=== PATIENT | male | born 1935 | race Hispanic/Latino ===

== ENCOUNTER 2018-10-04 14:52 | Emergency (ER) | payer MEDICARE ==
[~2018-10-04] VITALS: Ht 160 cm; Wt 75.3 kg
[~2018-10-04 14:52] MED LIST: ASPIRIN BUFFER325 MG PO; AVODART0.5 MG PO; CALCIUM + VITA1 EACH PO; CIPRO500 MG PO; GABAPENTIN400 MG PO; GLUCOSAMINE1000 MG PO; ISOSORBIDE MONO30 MG PO; LOPRESSOR25 MG PO; NAPROXEN500 M1 PO; NITROSTAT0.4 MG SL; OMEPRAZOLE40 MG PO; PLAVIX75 MG PO; SIMVASTATIN10 MG PO; ZESTRIL2.5 MG PO; ZITHROMAX500 MG PO
--- OUTSIDE RECORDS SUMMARY | 2018-10-04 14:56 | XMS REPORT ---
Author Author Jaylon Black [facility] eClinicalWorks Address Unknown Phone Unavailable Care Team Providers Care Balancing Machine Operator Name Role Phone Jaylon Black Unavailable Allergies, Adverse Reactions, Alerts Substance Reaction Event Type N.K.D.A. Info Not Available Non Drug Allergy Problems Problem Type Condition Code Onset Dates Condition Status Assessment Bilateral leg weakness R29.898 Active Assessment Other specified peripheral vascular diseases I73.89 Active Problem Bilateral leg weakness R29.898 Active Problem Encounter for drug therapy Z79.899 Active Problem Other specified peripheral vascular diseases I73.89 Active Problem Foot pain, right M79.671 Active Problem Transaminitis R74.0 Active Problem Joint pain M25.50 Active Medications Medication Code System Code Instructions Start Date End Date Status Dosage Lisinopril [facility] 55213121669 2.5 MG Orally Once a day Active 1 tablet Simvastatin [facility] 46712862517 10 MG Orally Once a day Active 1 tablet in the evening Lioresal [facility] [address]-71 10 MG Orally once a day Active 1 tablet with food or milk Magnesium Chloride [facility] [address]-38 70 MG Orally Active as directed Dutasteride [facility] 69162896803 0.5 MG Orally Once a day Active 1 capsule Metoprolol Tartrate ND 54889182715 25 MG Orally Twice a day Active 1/2 tablet with food Nitrostat [facility] 59000602153 0.4 MG Sublingual Active as directed Tramadol-Acetaminophen [facility] 69674330851 37.5-325 MG Orally every 6 hrs Active 2 tablets as needed Gabapentin [facility] 23700776951 400 MG Orally Twice a day Active 1 capsule Clopidogrel Bisulfate [facility] 67711639351 75 MG Orally Once a day Active 1 tablet Isosorbide Mononitrate [facility] [address]-85 30 MG Orally Once a day Active 1 tablet in the morning Aspirin [facility] 71541758792 81 MG Orally Once a day Active 1 tablet Vital Signs Date/Time: Jul 19, 2018 BMI 30.19 Index Weight 165.1 lbs Height 62 in Temperature 97.8 F Cardiac Monitoring Heart Rate 72 /min Blood Pressure Diastolic 70 mm Hg Blood Pressure Systolic 122 mm Hg Results No Known Results Summary Purpose eClinicalWorks Submission
--- OUTSIDE RECORDS SUMMARY | 2018-10-04 14:56 | XMS REPORT ---
Author Author Reji Araujo Organization eClinicalWorks Address Unknown Phone Unavailable Care Team Providers Care Public Relations Analyst Name Role Phone Reji Araujo CP Unavailable Allergies No Known Allergies Problems Problem Type Condition Code Onset Dates Condition Status Problem Bilateral leg weakness R29.898 Active Problem Encounter for drug therapy Z79.899 Active Problem Other specified peripheral vascular diseases I73.89 Active Problem Foot pain, right M79.671 Active Problem Transaminitis R74.0 Active Problem Joint pain M25.50 Active Medications No Known Medications Results No Known Results Summary Purpose eClinicalWorks Submission
--- OUTSIDE RECORDS SUMMARY | 2018-10-04 14:56 | XMS REPORT ---
Author Author Reji Araujo Organization eClinical[employer] Address Unknown Phone Unavailable Care Team Providers Care Bushler Name Role Phone Reji Araujo CP Unavailable [...]
--- OUTSIDE RECORDS SUMMARY | 2018-10-04 14:56 | XMS REPORT | Continuity of Care Document ---
Author Author [facility] Address Unknown Phone Unavailable Problems Problem Status Onset Date Classification Date Reported Comments Source R29.898 - OT SYMPTOMS AND SIGNS INVOLVI Active 07/20/2018 [facility] Transaminitis Active Problem 07/25/2018 Giovanni Gayle Joint pain Active Problem 07/25/2018 Giovanni Araujo Encounter for drug therapy Active Problem 07/25/2018 Giovanni Araujo Foot pain, right Active Problem 07/25/2018 Giovanni Araujo Bilateral leg weakness Active Problem 07/25/2018 Giovanni Araujo Other specified peripheral vascular diseases Active Problem 07/25/2018 Giovanni Araujo Elevated liver function tests Active Diagnosis 04/14/2018 Giovanni Araujo Medications Medication Details Route Status Patient Instructions Ordering Provider Order Date Source Aspirin 1 tablet Orally Active 81 MG Orally Once a day Sofia Giovanni Araujo Nitrostat as directed Sublingual Active 0.4 MG Sublingual Sofia Giovanni Araujo Isosorbide Mononitrate 1 tablet in the morning Orally Active 30 MG Orally Once a day Sofia Giovanni Araujo Ultracet 2 tablets as needed Orally Active 37.5-325 MG Orally every 6 hrs Sofia Giovanni Araujo Metoprolol Tartrate 1/2 tablet with food Orally Active 25 MG Orally Twice a day Sofia Giovanni Araujo Clopidogrel Bisulfate 1 tablet Orally Active 75 MG Orally Once a day Sofia Giovanni Araujo Lisinopril 1 tablet Orally Active 2.5 MG Orally Once a day Sofia Giovanni Araujo Simvastatin 1 tablet in the evening Orally Active 10 MG Orally Once a day Sofia Giovanni Araujo Dutasteride 1 capsule Orally Active 0.5 MG Orally Once a day Sofia Giovanni Araujo Magnesium Chloride as directed Orally Active 70 MG Orally Sofia Giovanni Araujo Lioresal 1 tablet with food or milk Orally Active 10 MG Orally once a day Sofia Giovanni Araujo Tramadol-Acetaminophen 2 tablets as needed Orally Active 37.5- 325 MG Orally every 6 hrs Sofia Giovanni Araujo Gabapentin 1 capsule Orally Active 400 MG Orally Twice a day Sofia Giovanni Araujo Allergies, Adverse Reactions, Alerts Substance Category Reaction Severity Reaction type Status Date Reported Comments Source N.K.D.A. Adverse Reaction Info Not Available Adverse Reaction Active 07/19/2018 Giovanni Araujo Immunizations Immunization Date Given Site Status Last Updated Comments Source Results Order Name Results Value Reference Range Date Interpretation Comments Source Ext Lower Arterial Doppler bilat US Ext Lower Arterial Doppler bilat US EXAM: US BILATERAL LOWER EXTREMITY ARTERIAL DOPPLER DATE: 07/20/2018 1:36 PM CDT INDICATION: - R29.898 Other symptoms and signs involving the musculoskeletal system, I73.89 Other specified peripheral vascular diseases ADDITIONAL INFORMATION: Foot pain and weakness for 2 years, light smoker COMPARISON: None. TECHNIQUE: Multiplanar grayscale, color Doppler and spectral Doppler ultrasound images of the bilateral lower extremity arteries. Segmental pressures were obtained and ankle/brachial indices were calculated. FINDINGS: Right Extremity Waveforms: Common Femoral Artery: 90.5cm/s Triphasic Profunda Femoral Artery: 83.1cm/s Triphasic Superficial Femoral Artery: 94cm/s Triphasic Popliteal Artery: 83cm/s Triphasic wall calcification noted. Posterior Tibialis Artery: 97cm/s biphasic Anterior Tibialis Artery: 60cm/s biphasic Dorsalis Pedis Artery: 57cm/s biphasic Left Extremity Waveforms: Common Femoral Artery: 108cm/s Triphasic Profunda Femoral Artery: 87cm/s biphasic Superficial Femoral Artery: 112cm/s Triphasic atheromatous changes with minimal plaque and wall calcification noted Popliteal Artery: 107cm/s Triphasic proximally, changing to biphasic in the mid to distal portion. Wall calcification identified distally. Posterior Tibialis Artery: 50cm/s biphasic. Minimal plaque and wall calcification identified Anterior Tibialis Artery: 45cm/s biphasic Dorsalis Pedis Artery: 71cm/s 5 biphasic Ankle Brachial Indices: Right JOSEMANUEL: 1.1 Left JOSEMANUEL: 1.1 Other: Incidental note is made of irregular cardiac rhythm. Enlarged left inguinal lymph node measuring 3.6 x 1 x 2.9 cm in size. IMPRESSION: 1. Right lower extremity: Biphasic waveforms in the small vessels of the ankle indicating small vessel disease. No evidence of stenosis or occlusion. 2. Left lower extremity: Biphasic waveforms in the small vessels of the ankle, indicating small vessel disease. Biphasic waveforms in the distal left popliteal artery with atheromatous changes and wall calcification noted. No stenosis or occlusion. 3. JOSEMANUEL normal range bilaterally. 07/20/2018 - - Read by: Petros James MD Dictated Date/time: 07/20/18 15:39 Electronically Signed by: Petros James 07/20/18 17:00 FINAL REPORT [facility] Ext Artery Single Level Bilat US Ext Artery Single Level Bilat US EXAM: US BILATERAL LOWER EXTREMITY ARTERIAL DOPPLER DATE: 07/20/2018 1:36 PM CDT INDICATION: - R29.898 Other symptoms and signs involving the musculoskeletal system, I73.89 Other specified peripheral vascular diseases ADDITIONAL INFORMATION: Foot pain and weakness for 2 years, light smoker COMPARISON: None. TECHNIQUE: Multiplanar grayscale, color Doppler and spectral Doppler ultrasound images of the bilateral lower extremity arteries. Segmental pressures were obtained and ankle/brachial indices were calculated. FINDINGS: Right Extremity Waveforms: Common Femoral Artery: 90.5cm/s Triphasic Profunda Femoral Artery: 83.1cm/s Triphasic Superficial Femoral Artery: 94cm/s Triphasic Popliteal Artery: 83cm/s Triphasic wall calcification noted. Posterior Tibialis Artery: 97cm/s biphasic Anterior Tibialis Artery: 60cm/s biphasic Dorsalis Pedis Artery: 57cm/s biphasic Left Extremity Waveforms: Common Femoral Artery: 108cm/s Triphasic Profunda Femoral Artery: 87cm/s biphasic Superficial Femoral Artery: 112cm/s Triphasic atheromatous changes with minimal plaque and wall calcification noted Popliteal Artery: 107cm/s Triphasic proximally, changing to biphasic in the mid to distal portion. Wall calcification identified distally. Posterior Tibialis Artery: 50cm/s biphasic. Minimal plaque and wall calcification identified Anterior Tibialis Artery: 45cm/s biphasic Dorsalis Pedis Artery: 71cm/s 5 biphasic Ankle Brachial Indices: Right JOSEMANUEL: 1.1 Left JOSEMANUEL: 1.1 Other: Incidental note is made of irregular cardiac rhythm. Enlarged left inguinal lymph node measuring 3.6 x 1 x 2.9 cm in size. IMPRESSION: 1. Right lower extremity: Biphasic waveforms in the small vessels of the ankle indicating small vessel disease. No evidence of stenosis or occlusion. 2. Left lower extremity: Biphasic waveforms in the small vessels of the ankle, indicating small vessel disease. Biphasic waveforms in the distal left popliteal artery with atheromatous changes and wall calcification noted. No stenosis or occlusion. 3. JOSEMANUEL normal range bilaterally. 07/20/2018 - - Read by: Petros James MD Dictated Date/time: 07/20/18 15:39 Electronically Signed by: Petros James 07/20/18 17:00 FINAL REPORT [facility] Vital Signs Vital Sign Value Date Comments Source Weight 165.1 07/19/2018 Giovanni Araujo Height 62 07/19/2018 Giovanni Araujo Temperature Oral (F) 97.8 F 07/19/2018 Giovanni Araujo Heart Rate 72 07/19/2018 Giovanni Araujo Diastolic (mm Hg) 70 07/19/2018 Giovanni Araujo Systolic (mm Hg) 122 07/19/2018 Giovanni Araujo Weight 161.3 04/11/2018 Giovanni Araujo Height 62 04/11/2018 Giovanni Araujo Temperature Oral (F) 97.2 F 04/11/2018 Giovanni Araujo Heart Rate 70 04/11/2018 Giovanni Araujo Diastolic (mm Hg) 60 04/11/2018 Giovanni Araujo Systolic (mm Hg) 128 04/11/2018 Giovanni Araujo Encounters Location Location Details Encounter Type Encounter Number Reason For Visit Attending Provider ADM Date DC Date Status Source Procedures Procedure Code Date Perfomer Comments Source
--- OUTSIDE RECORDS SUMMARY | 2018-10-04 14:56 | XMS REPORT ---
Author Author Jaylon Black [facility] eClinicalWorks Address Unknown Phone Unavailable Care Team Providers Care Electrician Radio Name Role Phone Jaylon Black Unavailable Allergies, Adverse Reactions, Alerts Substance Reaction Event Type N.K.D.A. Info Not Available Non Drug Allergy Problems Problem Type Condition Code Onset Dates Condition Status Assessment Transaminitis R74.0 Active Problem Transaminitis R74.0 Active Problem Joint pain M25.50 Active Problem Encounter for drug therapy Z79.899 Active Assessment Joint pain M25.50 Active Assessment Encounter for drug therapy Z79.899 Active Problem Foot pain, right M79.671 Active Assessment Foot pain, right M79.671 Active Medications Medication Code System Code Instructions Start Date End Date Status Dosage Aspirin [facility] 64286592312 81 MG Orally Once a day Active [address] [facility] 85633034761 0.4 MG Sublingual Active as directed Isosorbide Mononitrate [facility] [address]-85 30 MG Orally Once a day Active 1 tablet in the morning Ultracet [facility] 23873681989 37.5-325 MG Orally every 6 hrs Active 2 tablets as needed Metoprolol Tartrate [facility] 59129836431 25 MG Orally Twice a day Active 1/2 tablet with food Clopidogrel Bisulfate [facility] 29867388594 75 MG Orally Once a day Active [address] [facility] 26987812525 2.5 MG Orally Once a day Active [address] [facility] 56788639515 10 MG Orally Once a day Active 1 tablet in the evening Dutasteride [facility] 76236165755 0.5 MG Orally Once a day Active 1 capsule Magnesium Chloride [facility] [address]-73 70 MG Orally Active as directed Vital Signs Date/Time: April 11, 2018 BMI 29.50 Index Weight 161.3 lbs Height 62 in Temperature 97.2 F Cardiac Monitoring Heart Rate 70 /min Blood Pressure Diastolic 60 mm Hg Blood Pressure Systolic 128 mm Hg Results No Known Results Summary Purpose eClinicalWorks Submission
--- OUTSIDE RECORDS SUMMARY | 2018-10-04 14:56 | XMS REPORT ---
Author Author Reji Araujo Organization eClinicalWorks Address Unknown Phone Unavailable Care Team Providers Care Climate Change Risk Assessor Name Role Phone Reji Araujo CP Unavailable Allergies No Known Allergies Problems Problem Type Condition Code Onset Dates Condition Status Problem Transaminitis R74.0 Active Problem Joint pain M25.50 Active Problem Encounter for drug therapy Z79.899 Active Problem Foot pain, right M79.671 Active Medications No Known Medications Results No Known Results Summary Purpose eClinicalWorks Submission
--- OUTSIDE RECORDS SUMMARY | 2018-10-04 14:56 | XMS REPORT ---
Author Author Reji Araujo Organization eClinicalWorks Address Unknown Phone Unavailable Care Team Providers Care Feed Research Aide Name Role Phone Reji Araujo CP Unavailable Allergies No Known Allergies Problems Problem Type Condition Code Onset Dates Condition Status Problem Transaminitis R74.0 Active Problem Joint pain M25.50 Active Problem Encounter for drug therapy Z79.899 Active Problem Foot pain, right M79.671 Active Medications No Known Medications Results No Known Results Summary Purpose eClinicalWorks Submission
--- OUTSIDE RECORDS SUMMARY | 2018-10-04 14:56 | XMS REPORT ---
Author Author Reji Araujo Organization eClinicalWorks Address Unknown Phone Unavailable Care Team Providers Care Conference Service Coordinator Name Role Phone Reji Araujo CP Unavailable Allergies No Known Allergies Problems Problem Type Condition Code Onset Dates Condition Status Problem Transaminitis R74.0 Active Problem Joint pain M25.50 Active Problem Encounter for drug therapy Z79.899 Active Problem Foot pain, right M79.671 Active Assessment Elevated liver function tests R79.89 Active Medications No Known Medications Results No Known Results Summary Purpose eClinicalWorks Submission
--- OUTSIDE RECORDS SUMMARY | 2018-10-04 14:56 | XMS REPORT ---
Author Author Reji Araujo Organization eClinicalWorks Address Unknown Phone Unavailable Care Team Providers Care Food Service Specialist Name Role Phone Reji Araujo CP Unavailable [...]
[2018-10-04] MEDS ORDERED: IPRATROPIUM BROMIDE 0.02% 2.5 ML NEB NEB STA (15:17)
[2018-10-04] MEDS ORDERED: ALBUTEROL SULF 0.083% NEB SOLN 3 ML NEB NEB STA (15:17)
--- NOTE | 2018-10-04 16:11 | Diagnostic Imaging Report ---
EXAMINATION: CHEST 2 VIEWS INDICATION: Cough. COMPARISON: None FINDINGS: TUBES and LINES: None. LUNGS: Lungs are well inflated. Perihilar peribronchial hazy opacity could be due to bronchitis. There is no evidence of pneumonia or pulmonary edema. PLEURA: No pleural effusion or pneumothorax. HEART AND MEDIASTINUM: The cardiomediastinal silhouette is unremarkable. BONES AND SOFT TISSUES: No acute osseous lesion. Soft tissues are unremarkable. Postsurgical change to the right shoulder. UPPER ABDOMEN: No free air under the diaphragm. IMPRESSION: Perihilar peribronchial hazy opacity could be due to bronchitis. Signed by: Dr. Pilo Wise M.D. on 10/04/2018 4:07 PM
[2018-10-04] MEDS ORDERED: DEXAMETHASONE SOD PHOS 10 MG/1 ML VIAL INJ ONE (17:15)
[2018-10-04 17:49] LABS: BASOPHILS % 0.3 % (0.0-1.0); EOSINOPHILS % 0.4 % (0.0-6.0); HEMATOCRIT 41.5 % (38.2-49.6); HEMOGLOBIN 13.4 g/dL (14.0-18.0); LYMPHOCYTES # (AUTO) 2.6 (1.0-3.2); LYMPHOCYTES % 26.2 % (18.0-39.1); MEAN CORPUSCULAR HEMOGLOBIN 28.8 pg (28-32); MEAN CORPUSCULAR HGB CONC 32.3 g/dL (31-35); MEAN CORPUSCULAR VOLUME 89.2 fL (81-99); MONOCYTES # (AUTO) 1.1 (0.2-0.8); MONOCYTES % 11.1 % (4.4-11.3); NEUTROPHILS # (AUTO) 6.1 (2.1-6.9); NEUTROPHILS % 60.8 % (38.7-80.0); PLATELET COUNT 189 x10e3/uL (140-360); RED BLOOD COUNT 4.65 x10e6/uL (4.3-5.7); RED CELL DISTRIBUTION WIDTH 13.4 % (11.7-14.4)
[2018-10-04 18:05] LABS: ALANINE AMINOTRANSFERASE 12 IU/L (0-55); ALBUMIN 3.4 g/dL (3.5-5.0); ALBUMIN/GLOBULIN RATIO 1.3 (0.8-2.0); ALKALINE PHOSPHATASE 80 IU/L (40-150); ANION GAP 13.5 mmol/L (8-16); BLOOD UREA NITROGEN 18 mg/dL (7-26); BUN/CREATININE RATIO 18 (6-25); CALCIUM 8.7 mg/dL (8.4-10.2); CARBON DIOXIDE 25 mmol/L (22-29); CHLORIDE 106 mmol/L (98-107); CREATINE KINASE 84 IU/L (30-200); EST GLOMERULAR FILTRATION RATE > 60 ML/MIN (60-); GLUCOSE 105 mg/dL (74-118); POTASSIUM 3.5 mmol/L (3.5-5.1); SODIUM 141 mmol/L (136-145)
--- NOTE | 2018-10-04 18:39 | NUR ---
Pt is AA&Ox3. RN at bedside to give meds as ordered. No distress, family at the bedside. Awaiting med time and then discharge.
== END 2018-10-04 18:56 | disposition home or self-care (01) ==
LOC: ER 14:52
DX: R05 Cough (principal); J20.9 Acute bronchitis, unspecified; I10 Essential (primary) hypertension; K21.9 Gastro-esophageal reflux disease without esophagitis
CPT/HCPCS: 36415; 71046; 80053; 82550; 82553; 84484; 85025; 93005; 94640; 99284; J1100